=== PATIENT | female | born 1985 | race Caucasian/White ===

== ENCOUNTER 2017-07-29 20:17 | Outpatient (CLI) | payer OTHER | END 2017-07-29 20:18 | disposition critical access hospital (66) | LOC: EMS 20:17 | PROVIDERS: ATTEND Surgery | DX: R07.9 Chest pain, unspecified (principal); R55 Syncope and collapse; R11.0 Nausea | CPT/HCPCS: A0425; A0429 ==

== ENCOUNTER 2017-07-29 20:41 | Emergency (ER) | payer OTHER ==
--- NOTE | 2017-07-29 22:20 | ED Physician Documentation ---
PD HPI SYNCOPE - Stated complaint Stated Complaint: SYNCOPE - Chief complaint Chief Complaint: Neuro - History obtained from History obtained from: Patient - History of Present Illness Witnessed: Unwitnessed Timing - onset: How many hours ago (she says she felt lightheaded when she got up earlier today and then felt faint and passed out. She awoke on floor. She had some mild headache. Not aware of striking her head per se. Has had feeling of fogginess with thoughts and awareness and trouble speaking, with stuttering and some word search.), Today Preceding symptoms: Light headed, Generalized weakness. No: Headache, Chest pain, Palpitations, Abdominal pain, Nausea / vomiting Associated symptoms: No: Seizure, Incontinant of urine Contributing factors: Just stood up. No: Recent med change, Decreased PO intake Injury occurred: Fell, Head injury. No: Neck injury, Bit tongue Similar symptoms before: Has not had sx before Recently seen: Not recently seen Review of Systems Constitutional: denies: Fever, Chills, Myalgias Eyes: denies: Loss of vision, Decreased vision Nose: denies: Rhinorrhea / runny nose, Congestion Throat: denies: Sore throat Cardiac: denies: Chest pain / pressure, Palpitations Respiratory: denies: Dyspnea, Cough GI: denies: Nausea, Vomiting, Diarrhea : denies: Dysuria, Frequency, Now EGA PD PAST MEDICAL HISTORY - Past Medical History Past Medical History: Yes Cardiovascular: None Respiratory: Asthma Neuro: None Endocrine/Autoimmune: None GI: None 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: Ovarian cysts : None HEENT: Chronic hearing loss Psych: None Musculoskeletal: None Derm: None - Past Surgical History Past Surgical History: Yes General: Appendectomy /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: Tubal ligation - Present Medications Home Medications: Ambulatory Orders Medication Instructions Recorded Confirmed Ibuprofen 400 mg PO 10/08/12 10/08/12 - Allergies Allergies/Adverse Reactions: Allergies Allergy/AdvReac Type Severity Reaction Status Date / Time No Known Drug Allergies Allergy Verified 07/29/17 20:49 - Social History Does the pt smoke?: Yes Smoking Status: Current every day smoker Does the pt drink ETOH?: No Does the pt have substance abuse?: No - Immunizations Immunizations are current?: Yes - POLST Patient has POLST: No PD ED PE NORMAL - Vitals Vital signs reviewed: Yes - General General: Alert and oriented X 3, Well developed/nourished, Other (not in pain but does seem distressed at her difficulty with speaking and having word search and stuttering pattern. 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 No: Normal speech (stuttering and some word search. No garbled nor word salad. ) Eye Opening: Spontaneous Motor: Obeys Commands Verbal: Oriented GCS Score: 15 Results - Vitals Vitals: Oxygen O2 Source Room air - Labs Labs: Laboratory Tests 07/29/17 07/29/17 07/29/17 23:03 23:03 23:03 WBC 6.1 RBC 4.79 Hgb 14.7 Hct 42.6 MCV 88.9 MCH 30.6 MCHC 34.5 RDW 13.0 Plt Count 233 MPV 8.2 Neut # 3.9 Lymph # 1.7 Lipscomb # 0.3 Eos # 0.1 Baso # 0.0 Absolute Nucleated RBC 0.00 Nucleated RBC % 0.0 Sodium 136 Potassium 4.2 Chloride 102 Carbon Dioxide 27 Anion Gap 7.0 BUN 12 Creatinine 0.8 Estimated GFR (MDRD) 84 L Glucose 89 Calcium 8.7 Total Bilirubin 1.2 H AST 14 ALT < 10 L Alkaline Phosphatase 62 Total Protein 7.0 Albumin 4.3 Globulin 2.7 Albumin/Globulin Ratio 1.6 Lipase 15 L Serum HCG, Qual NEGATIVE PD MEDICAL DECISION MAKING - ED course Complexity details: re-evaluated patient (she is starting to talk more fluidly after time in the ED. ), considered differential (the fall/ near syncope sounds just postural and she had not been ill. She is having some stuttering talk and trouble concentrating, getting words out. Consider concussion from the fall during the faint. head CT done and did not show any bleed nor acute process. ), d/w patient Departure - Departure Disposition: 01 Home, Self Care Clinical Impression: Syncope Qualifiers: Syncope type: unspecified Qualified Code(s): R55 - Syncope and collapse Brain concussion Qualifiers: Encounter type: initial encounter Loss of consciousness presence/duration: with LOC of 30 min or less Qualified Code(s): S06.0X1A - Concussion with loss of consciousness of 30 minutes or less, initial encounter Condition: Stable Record reviewed to determine appropriate education?: Yes Instructions: ED Concussion, ED Syncope Vasovagal Comments: Drink lots of fluids. Tylenol or ibuprofen if needed for pains. Your basic blood tests appear normal. The fainting episode sounds likely related to his to change in posture and a transient drop in blood pressure. Your headache and trouble speaking her likely concussive and should clear over a day or 2. Recheck if not improved over that timeframe. Discharge Date/Time: 07/30/17 00:13
[2017-07-29] MEDS ORDERED: SODIUM CHLORIDE 0.9% 1,000 ML IV ONE (22:42)
[2017-07-29] MEDS ORDERED: ONDANSETRON 4 MG/2 ML VIAL IVP STA (22:43)
[2017-07-29] MEDS ORDERED: KETOROLAC 60 MG/2 ML VIAL IVP STA (22:43)
[2017-07-29 22:57] VITALS: BP 115/80
[2017-07-29 23:07] LABS: BASOPHILS % (AUTO) 0.7 %; EOSINOPHILS # (AUTO) 0.1 10^3/uL (0.0-0.7); HGB - HEMOGLOBIN 14.7 g/dL (12.0-16.0); LYMPHOCYTES # (AUTO) 1.7 10^3/uL (1.5-3.5); LYMPHOCYTES % (AUTO) 28.4 %; MEAN CORPUSCULAR HEMOGLOBIN 30.6 pg (27.0-31.0); MEAN CORPUSCULAR HGB CONC 34.5 g/dL (32.0-36.0); MEAN CORPUSCULAR VOLUME 88.9 fL (81.0-99.0); MEAN PLATELET VOLUME 8.2 fL (7.9-10.8); MONOCYTES # (AUTO) 0.3 10^3/uL (0.0-1.0); MONOCYTES % (AUTO) 5.5 %; NEUTROPHILS # (AUTO) 3.9 10^3/uL (1.5-6.6); NEUTROPHILS % (AUTO) 64.4 %; PLT - PLATELET COUNT 233 10^3/uL (130-450); RED BLOOD COUNT 4.79 10^6/uL (4.20-5.40); WHITE BLOOD COUNT 6.1 x10^3/uL (4.8-10.8)
[2017-07-29 23:20] LABS: ALBUMIN 4.3 g/dL (3.2-5.5); ALBUMIN/GLOBULIN RATIO 1.6 (1.0-2.2); ALKALINE PHOSPHATASE 62 IU/L (42-121); ALT ALANINE AMINOTRANSFERASE < 10 IU/L (10-60); AST ASPARTATE AMINOTRANSFERASE 14 IU/L (10-42); BILIRUBIN,TOTAL 1.2 mg/dL (0.2-1.0); BUN - BLOOD UREA NITROGEN 12 mg/dL (6-20); CALCIUM 8.7 mg/dL (8.5-10.3); CARBON DIOXIDE - CO2 27 mmol/L (21-32); CHLORIDE 102 mmol/L (101-111); CREATININE 0.8 mg/dL (0.4-1.0); GFR - MDRD 84 (>89); GLUCOSE 89 mg/dL (70-100); LIPASE 15 U/L (22-51); SODIUM 136 mmol/L (135-145)
[2017-07-29 23:33] LABS: HCG,QUALITATIVE BLOOD NEGATIVE
--- NOTE | 2017-07-29 23:33 | CT Preliminary Report ---
Exam: CT HEAD W/O IMPRESSION: Normal head CT. [facility] SITE ID: [id number]
--- NOTE | 2017-07-29 23:33 | CT Report ---
EXAM: CT HEAD EXAM DATE: 07/29/2017 11:27 PM. CLINICAL HISTORY: Fainting; headache and difficulty speaking. COMPARISON: None. TECHNIQUE: Multiaxial CT images were obtained from the foramen magnum to the vertex. Reformats: Coron al. IV contrast: None. In accordance with CT protocol optimization, one or more of the following dose reduction techniques w ere utilized for this exam: automated exposure control, adjustment of mA and/or KV based on patient s ize, or use of iterative reconstructive technique. FINDINGS: Parenchyma: No intraparenchymal hemorrhage. No evidence of mass, midline shift, or CT findings of inf arction. Hernández-white differentiation is distinct. Extraaxial Spaces: Normal for age. No subdural or epidural collections identified. Ventricles: Normal in size and position. Sinuses and Orbits: Imaged paranasal sinuses, orbits, and mastoids show no significant abnormality. Bones: No evidence of fracture or calvarial defect. Other: None. IMPRESSION: Normal head CT. [facility] Referring Provider Line: [phone] SITE ID: [id number]
== END 2017-07-30 00:13 | disposition home or self-care (01) ==
LOC: EDUNIT# → ED 20:41
DX: R55 Syncope and collapse (principal); S06.0X1A Concussion with loss of consciousness of 30 minutes or less, initial encounter; W18.30XA Fall on same level, unspecified, initial encounter; F17.200 Nicotine dependence, unspecified, uncomplicated
CPT/HCPCS: 36415; 70450; 80053; 83690; 84703; 85025; 96361; 96374; 96375; 99283; 99284

== ENCOUNTER 2023-10-31 13:26 | Outpatient (CLI) | payer MEDICAID ==
--- NOTE | 2023-10-31 20:54 | XRAY Report ---
PROCEDURE: Lumbar Spine 2-3V INDICATIONS: SCIATICA TECHNIQUE: 2 views of the lumbar spine were acquired. COMPARISON: None. FINDINGS: Surgical change: None. Bones: 5 [id number] vertebrae are present. There is normal bony alignment. No vertebral body co mpression fractures. No suspicious bony lesions. Minimal foraminal narrowing at L5-S1 Soft tissues: Overlying bowel gas pattern is normal. No suspicious soft tissue calcifications. IMPRESSION: Minimal L5-S1 foraminal narrowing. Reviewed by: Jennie Lawrence MD on 10/31/2023 8:52 PM PDT Approved by: Jennie Lawrence MD on 10/31/2023 8:52 PM PDT Station ID: [id number]
== END 2023-10-31 13:27 | disposition home or self-care (01) ==
LOC: DI 13:26
PROVIDERS: ATTEND Family Medicine
DX: M48.07 Spinal stenosis, lumbosacral region (principal)

== ENCOUNTER 2023-11-14 23:36 | Emergency (ER) | payer MEDICAID ==
--- NOTE | 2023-11-14 23:49 | ED Physician Documentation ---
PD HPI HEENT - Stated complaint Stated Complaint: RT EAR PX - Chief complaint Chief Complaint: Heent - History obtained from History obtained from: Patient - Additional information Additional information: 38-year-old woman who is hearing impaired with right ear hearing aid presents with right ear pain tonight, worse with movement of the pinna. denies fever, hearing loss, abnormal discharge. 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: Ovarian cysts : None HEENT: Chronic hearing loss Psych: None Musculoskeletal: None Derm: None - Past Surgical History Past Surgical History: Yes General: Appendectomy /CUTTING AND BONING SUPERVISOR: Tubal ligation - Present Medications Home Medications: Ambulatory Orders Medication Instructions Recorded Confirmed Ibuprofen 400 mg PO 10/08/12 10/08/12 Ofloxacin [Ofloxacin Otic drops] 5 ml OT TID 7 Days #5 ml 11/14/23 - Allergies Allergies/Adverse Reactions: Allergies Allergy/AdvReac Type Severity Reaction Status Date / Time No Known Drug Allergies Allergy Verified 11/14/23 23:40 - Social History Does the pt smoke?: Yes Smoking Status: Current every day smoker Does the pt drink ETOH?: No Does the pt have substance abuse?: No - Immunizations Immunizations are current?: Yes - POLST Patient has POLST: No PD ED PE NORMAL - Vitals Vital signs reviewed: Yes - General General: Alert and oriented X 3, No acute distress, Well developed/nourished - HEENT HEENT: Atraumatic, PERRL, EOMI, Other (BL TMs clear. R ext auditory canal with erythema to posterior wall c/w otitis externa) Results - Vitals Vitals: Vital Signs - 24 hr 11/14/23 23:40 Temperature 36.5 C Heart Rate 90 Respiratory 16 Rate Blood Pressure 145/73 H O2 Saturation 100 Oxygen O2 Source Room air PD Medical Decision Making - ED course ED course: 38yF p/w otitis externa, which will be treated with antibiotic drops. return precautions given. plan to f/u with pcp. Departure - Departure Disposition: 01 Home, Self Care Clinical Impression: External otitis Condition: Stable Instructions: ED Otitis Externa Prescriptions: Ofloxacin [Ofloxacin Otic drops] 5 ml OT TID 7 Days #5 ml Comments: You were seen in the emergency department for external ear infection. Antibiotic drops were sent to [facility] in [place]. Please follow-up with your primary care provider and return to the emergency department if you have any new or worsening symptoms or other concerns.
[2023-11-14 23:54] VITALS: BP 145/73; O2SAT 100
== END 2023-11-14 23:55 | disposition home or self-care (01) ==
LOC: ED 23:36
DX: H60.91 Unspecified otitis externa, right ear (principal); F17.200 Nicotine dependence, unspecified, uncomplicated
CPT/HCPCS: 99282; 99283